=== PATIENT | female | born 1965 | race Caucasian/White ===

== ENCOUNTER 2023-07-12 11:31 | Emergency (ER) | payer MEDICARE, MEDICAID ==
[~2023-07-12] VITALS: Ht 157.5 cm; Wt 74.5 kg
[~2023-07-12 11:31] MED LIST: ASPIRIN 81M81 MG/TA2 PO; COZAAR 25MG25 MG/TAB PO; GLUCOPHAGE500 MG/TAB PO; INDERAL 20MG20 MG PO; LEVEMIR FLEX100 U/ML SQ; LIPITOR 40MG TA40 MG PO; MAG-OX 400400 MG/TAB PO; NEURONTIN600 MG/TAB PO; NEXIUM 20MG20 MG PO; REQUIP 1MG T1 MG/TAB PO; RT ADVAIR HFA 1112 G IH
[2023-07-12 11:33] VITALS: TEMP 97.5
[2023-07-12 11:59] LABS: BASO % 0.3 % (0.0-2.0); EOS # 0.1 K/mm3 (0.0-0.7); EOS % 1.4 % (0.0-4.0); GRAN # 4.9 K/mm3 (1.4-6.5); GRAN % 68.7 % (42.2-75.2); HEMATOCRIT 43.1 % (37.0-47.0); HEMOGLOBIN 14.3 g/dl (12.5-16.0); LYMPH # 1.7 K/mm3 (1.2-3.4); LYMPH % 24.2 % (20.0-51.0); MEAN CELL VOLUME 84 fl (80.0-100.0); MEAN CORPUSCULAR HEMOGLOBIN 28 pg (27-31); MEAN CORPUSCULAR HGB CONC 33 g/dl (33.0-37.0); MEAN PLATELET VOLUME 9.7 fl (7.4-10.4); MONO # 0.4 K/mm3 (0.1-0.6); MONO % 5.1 % (1.7-9.3); PLATELET COUNT 242 K/mm3 (130-400); RED BLOOD COUNT 5.16 M/mm3 (4.10-5.30); REDCELL DISTRIBUTION WIDTH-CV 13.8 % (11.5-14.5)
[2023-07-12 12:18] LABS: ALBUMIN 3.7 gm/dL (3.5-5.0); BILIRUBIN,TOTAL 0.5 mg/dL (0.2-1.2); CALCIUM 10.2 mg/dL (8.4-10.2); CREATININE, serum 0.85 mg/dL (0.57-1.11); POTASSIUM 4.2 mmol/L (3.5-4.5); TOTAL PROTEIN 7.6 gm/dL (6.2-8.1)
[2023-07-12 14:09] LABS: COLLECTION METHOD CLEAN CATCH
[2023-07-12 14:18] LABS: URINE APPEARANCE Clear (CLEAR/HAZY); URINE BLOOD Negative (NEGATIVE); URINE COLOR Yellow (YELLOW); URINE GLUCOSE 2+ (NEGATIVE); URINE KETONE Negative (NEGATIVE); URINE NITRATE Negative (NEGATIVE); URINE PROTEIN(semi-quant) Negative (NEGATIVE); URINE UROBILINOGEN 0.2 E.U/dL (0.2-1.0)
[2023-07-12 14:37] LABS: SQUAMOUS EPITHELIAL 0-2 /hpf (0-10); URINE BACTERIA None Seen /hpf (NONE SEEN); URINE RBC 0-2 /hpf (0-2)
[2023-07-12 15:12] VITALS: BP 145/86; PULSE 74
== END 2023-07-12 15:12 | disposition home or self-care (01) ==
LOC: COL.ER 11:31
PROVIDERS: Physician Assistant
DX: R10.32 Left lower quadrant pain (principal)
CPT/HCPCS: J1200; J1885; J2270; J7030; Q9967